=== PATIENT | female | born 1980 | race Hispanic/Latino ===

== ENCOUNTER 2019-02-16 17:29 | Emergency (ER) | payer SELFPAY ==
[2019-02-16] MEDS ORDERED: LIDOCAINE 1% MPF 5 ML VIAL ONE (18:05)
[2019-02-16] MEDS ORDERED: TETANUS & DIPHTHERIA TOX,ADULT 0.5 ML VIAL ONE (18:05)
[2019-02-16] MEDS ORDERED: BUPIVACAINE 0.5% PF 10 ML VIAL ONE (18:06)
--- NOTE | 2019-02-16 18:12 | RAD REPORT ---
EXAM DESCRIPTION: RAD - Hand Left 3 View - 02/16/2019 6:03 pm CLINICAL HISTORY: Hand pain, laceration to second digit COMPARISON: None. FINDINGS: No fracture, dislocation or periosteal reaction noted. Soft tissue swelling is present kanwal und the second proximal phalanx and second PIP joint. No air or foreign body in the soft tissues. IMPRESSION: Second digit soft tissue swelling with no bony abnormality. No foreign body.
[2019-02-16] MEDS ORDERED: LIDOCAINE 1% W/EPI 1:100,000 MDV 50 ML VIAL ONE (18:35)
--- NOTE | 2019-02-16 19:04 | ER ---
Nurse's Notes [facility] Name: Marti Mariee Age: 38 yrs Sex: Female : 1980 Arrival Date: 02/16/2019 Time: 17:33 Bed 30 Private MD: Diagnosis: Laceration without foreign body of finger without damage to nail-left index Presentation: 02/16 17:37 Presenting complaint: Patient states: I cut my left index finger with a knife while la1 cutting watermelon. Transition of care: patient was not received from another setting of care. Complicating Factors: There are no complicating factors for this patient. Onset of symptoms was February 16, 2019. Risk Assessment: Do you want to hurt yourself or someone else? Patient reports no desire to harm self or others. Initial Sepsis Screen: Does the patient meet any 2 criteria? No. Patient's initial sepsis screen is negative. Does the patient have a suspected source of infection? No. Patient's initial sepsis screen is negative. Care prior to arrival: None. 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 - Social history:: Smoking status: Patient/guardian denies using tobacco. - Ebola Screening: : No symptoms or risks identified at this time. Screenin:57 Abuse screen: Denies threats or abuse. Denies injuries from another. Nutritional mg2 screening: No deficits noted. Tuberculosis screening: No symptoms or risk factors identified. Fall Risk None identified. Assessment: 17:57 General: Appears in no apparent distress. comfortable, Behavior is calm, cooperative. mg2 Pain: Complains of pain in left index finger. Neuro: Level of Consciousness is awake, alert, obeys commands, Oriented to person, place, time, situation. Cardiovascular: Capillary refill < 3 seconds Patient's skin is warm and dry. Respiratory: Airway is patent Respiratory effort is even, unlabored, Respiratory pattern is regular, symmetrical. GI: No signs and/or symptoms were reported involving the gastrointestinal system. : No signs and/or symptoms were reported regarding the genitourinary system. EENT: No signs and/or symptoms were reported regarding the EENT system. Derm: Skin is intact, is healthy with good turgor, Skin is pink, warm \T\ dry. normal. Derm: Wound noted left index finger Wound is new, fresh cut by a knife approx. 1 cm long. Musculoskeletal: Circulation, motion, and sensation intact. Capillary refill < 3 seconds. Injury Description: Laceration sustained to left index finger is clean, 0.5 to 2.5 cm long, was sustained less than 30 minutes ago. is bleeding no active bleeding noted. Vital Signs: 17:38 BP 142 / 81; Pulse 77; Resp 16; Temp 97.6; Pulse Ox 98% on R/A; Weight 61.23 kg; Height la1 5 ft. 5 in. (165.10 cm); 19:17 BP 124 / 78; Pulse 80; Resp 18; Temp 98; Pulse Ox 100% on R/A; Pain 0/10; mg2 17:38 Body Mass Index 22.46 (61.23 kg, 165.10 cm) la1 ED Course: 17:33 Patient arrived in ED. rg4 17:38 Triage completed. la1 17:38 Ward Varma PA is PHCP. cp 17:38 Germain Valero MD is Attending Physician. cp 17:38 Arm band placed on left wrist. la1 17:47 Fortunato Malhotra, ANUPAM is Primary Nurse. mg2 18:02 Patient has correct armband on for positive identification. mg2 18:04 XRAY Hand LEFT 3 View In Process Unspecified. EDMS 19:13 Assist provider with laceration repair on left index finger that was 2.5 cm. or less mg2 using sutures. Set up tray. Performed by Ward NUÑEZ Dressed with 4X4s, Patient tolerated well. Patient did not have IV access during this emergency room visit. Aluminum finger splint applied to left index finger. Wound care: to laceration located on left index finger was cleaned with Betadine, irrigated with dressed with 4X4s, Patient tolerated well. Administered Medications: 18:08 Drug: Tetanus-Diphtheria Toxoid Adult 0.5 ml {Photographer News: [employer]. Exp: mg2 11/21/2020. Lot #: [id number]. } Route: IM; Site: right deltoid; 19:00 Follow up: Response: No adverse reaction; Marked relief of symptoms mg2 18:57 Drug: Lidocaine-Epinephrine -1%: (1:100,000) 5 ml Volume: 20 ml; Route: Infiltration; mg2 19:00 Follow up: Response: No adverse reaction; Marked relief of symptoms mg2 Outcome: 19:04 Discharge ordered by . frannie 19:16 Discharged to home ambulatory, with family. mg2 19:16 Condition: stable 19:16 Discharge instructions given to patient, family, Instructed on discharge instructions, follow up and referral plans. wound care, Demonstrated understanding of instructions, follow-up care, wound care, splint care. 19:17 Patient left the ED. mg2 Signatures: Dispatcher [employer] EDMS Elmer Vaz RN RN la1 Ward Varma PA PA cp Garcia, Rubi rg4 Fortunato Malhotra RN RN mg2
--- NOTE | 2019-02-16 19:05 | EDPHYS ---
Physician Documentation [facility] Name: Marti Mariee Age: 38 yrs Sex: Female : 1980 Arrival Date: 02/16/2019 Time: 17:33 Bed 30 Private MD: ED Physician Germain Valero HPI: 02/16 17:45 This 38 yrs old Female presents to ER via Ambulatory with complaints of cp Laceration To Hand. 17:45 The patient has a laceration occurred at home, and there are no complicating factors. cp The laceration(s) is(are) located on the dorsal aspect left index finger middle phalanx. Onset: The symptoms/episode began/occurred just prior to arrival. 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 - Social history:: Smoking status: Patient/guardian denies using tobacco. - Ebola Screening: : No symptoms or risks identified at this time. ROS: 18:00 Eyes: Negative for injury, pain, redness, and discharge. cp 18:00 Constitutional: Negative for body aches, chills, fever, poor PO intake. 18:00 Skin: Positive for laceration(s), of the left index finger. 18:00 Cardiovascular: Negative for chest pain. cp 18:00 Respiratory: Negative for cough, shortness of breath. 18:00 Abdomen/GI: Negative for abdominal pain. 18:00 Neuro: Negative for headache, numbness. 18:00 All other systems are negative. Exam: 18:05 Head/Face: Normocephalic, atraumatic. cp 18:05 Constitutional: The patient appears in no acute distress, alert, awake, well developed, well nourished. 18:05 Musculoskeletal/extremity: Sensation intact. Tendon exam: specific tendon testing cp normal through active and passive range of motion 18:05 Skin: injury, laceration(s), the wound is approximately 1.5 cm(s), of the dorsal aspect middle phalanx left index finger, that can be described as clean, linear, with mild bleeding. Vital Signs: 17:38 BP 142 / 81; Pulse 77; Resp 16; Temp 97.6; Pulse Ox 98% on R/A; Weight 61.23 kg; Height la1 5 ft. 5 in. (165.10 cm); 19:17 BP 124 / 78; Pulse 80; Resp 18; Temp 98; Pulse Ox 100% on R/A; Pain 0/10; mg2 17:38 Body Mass Index 22.46 (61.23 kg, 165.10 cm) la1 Laceration: 19:02 Wound Repair of 1.5cm ( 0.6in ) subcutaneous laceration to dorsal aspect middle phalanx cp left index finger. Linear shaped.. Distal neuro/vascular/tendon intact. Anesthesia: Wound infiltrated with 2 mls of 1% lidocaine w/ Epi. Wound prep: Moderate cleansing by me, Wound irrigation by me, Wound explored moderately. Skin closed with 3 4-0 Prolene using interrupted sutures and sterile technique. Dressed with Bacitracin, 4x4's. Patient tolerated well. MDM: 17:40 Patient medically screened. 19:03 Data reviewed: vital signs, nurses notes, radiologic studies, plain films. 19:03 Test interpretation: by ED physician or midlevel provider: plain radiologic studies. cp Counseling: I had a detailed discussion with the patient and/or guardian regarding: the historical points, exam findings, and any diagnostic results supporting the discharge/admit diagnosis, radiology results, to return to the emergency department if symptoms worsen or persist or if there are any questions or concerns that arise at home. Response to treatment: the patient's symptoms have markedly improved after treatment, and as a result, I will discharge patient. 02/16 17:44 Order name: XRAY Hand LEFT 3 View; Complete Time: 18:18 02/16 18:18 Interpretation: Report reviewed. 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 Exp: mg2 11/21/2020. Lot #: [id number]. } Route: IM; Site: right deltoid; 19:00 Follow up: Response: No adverse reaction; Marked relief of symptoms mg2 18:57 Drug: Lidocaine-Epinephrine -1%: (1:100,000) 5 ml Volume: 20 ml; Route: Infiltration; mg2 19:00 Follow up: Response: No adverse reaction; Marked relief of symptoms mg2 Disposition: 02/16/19 19:04 Discharged to Home. Impression: Laceration without foreign body of finger without damage to nail - left index. - Condition is Stable. - Discharge Instructions: Laceration Care, Adult. - Medication Reconciliation Form, Thank You Letter, Antibiotic Education, Prescription Opioid Use form. - Follow up: Private Physician; When: 7 - 10 days; Reason: Staple/Suture removal. - Problem is new. - Symptoms have improved. Addendum: 02/18/2019 08:13 Co-signature as Attending Physician, Germain Valero MD I agree with the assessment and k dr plan of care. Signatures: Dispatcher [employer] EDTN Germain Valero MD MD [facility] Elmer Vaz RN RN la1 Ward Varma PA PA cp Fortunato Malhotra RN RN mg2 Corrections: (The following items were deleted from the chart) 02/16 19:17 19:04 02/16/2019 19:04 Discharged to Home. Impression: Laceration without foreign body mg2 of finger without damage to nail - left index. Condition is Stable. Forms are Medication Reconciliation Form, Thank You Letter, Antibiotic Education, Prescription Opioid Use. Follow up: Private Physician; When: 7 - 10 days; Reason: Staple/Suture removal. Problem is new. Symptoms have improved. cp
== END 2019-02-16 19:17 | disposition home or self-care (01) ==
LOC: ER 17:29
PROC: 0JQK0ZZ Repair Left Hand Subcutaneous Tissue and Fascia, Open Approach (ICD-10-PCS; principal; 2019-02-16)
DX: S61.211A Laceration without foreign body of left index finger without damage to nail, initial encounter (principal); Z23 Encounter for immunization
CPT/HCPCS: 90471; 90714; 99284